=== PATIENT | female | born 1970 | race Two or more races ===

== ENCOUNTER 2016-07-23 12:01 | Day surgery (SDC) | payer BC ==
[2016-07-23] MEDS ORDERED: HYDROCODONE/APAP 5/325MG TABLET PO ONE (14:00)
[2016-07-23] MEDS ORDERED: BUPIVACAINE 0.25% W/EPI MPF 30ML VIAL IVP ONE (14:00)
[2016-07-23] MEDS ORDERED: PROPOFOL 10 MG/ML VIAL IV ONE (15:26)
[2016-07-23] MEDS ORDERED: MIDAZOLAM HCL 2MG/2ML VIAL IV ONE (15:26)
[2016-07-23] MEDS ORDERED: *PACU ONLY* KETAMINE HCL 10 MG/ML (20ML) VIAL IV ONE (15:26)
[2016-07-23] MEDS ORDERED: LIDOCAINE 2% MDV (20MG/ML) 20ML VIAL IV ONE (15:26)
--- NOTE | 2016-07-27 08:41 | Operative Note ---
OPERATIVE REPORT DATE OF PROCEDURE: 07/23/2016. SURGEON: Tim Boyd D.O. REFERRING PHYSICIAN: Rodrigo Curiel D.O. PREOPERATIVE DIAGNOSIS: Scalp mass. POSTOPERATIVE DIAGNOSIS: Scalp mass. PROCEDURE: Wound exploration. INDICATIONS: The patient is a 46-year-old female who was in her primary care doctor's office where attempts were made to remove a scalp cyst. Due to the depth of this, the procedure was stopped and she was sent to me. On examination she had a nodular area here which certainly felt like a pilar cyst. She had three Prolene sutures in place. We did discuss excision of this area and the risks, benefits, and alternatives. The risks include bleeding, infection, acute and chronic pain, and recurrence. She understood this fully. DESCRIPTION OF PROCEDURE: Therefore consent was signed and questions were answered. She was taken to the operating room and was placed in the supine position. Local intravenous sedation was given per the Department of Anesthesia. The patient's scalp was prepped in the usual sterile fashion. The Prolene sutures that had been placed previously were removed. An incision was made through the previous incision, and this was enlarged a bit. This was carried down through the subcutaneous tissue. There was some old fat necrosis encountered. The nodular area encountered was on her skull, and this was intimally attached to this. This was not a pilar cyst or an epidermal occlusion cyst but a nodular growth off of her calvarium. No real attempts were made to remove this fixed structure. The case was explained in detail to her significant other. This would require being chiseled off. If this was desired, then neurosurgery may need to be involved. At this point the wound was closed with 3-0 Vicryl. I will see her back in two weeks for further discussion. Tim Boyd D.O. Date Time JOB NUMBER: [id number] cc: Rodrigo Curiel D.O. [facility]
== END 2016-07-23 14:20 | disposition home or self-care (01) ==
LOC: SUR 12:01
PROVIDERS: ATTEND Surgery
DX: R22.9 Localized swelling, mass and lump, unspecified (principal)